=== PATIENT | female | born 1935 | race African-American/Black ===

== ENCOUNTER 2017-11-25 21:18 | Emergency (ER) | payer MEDICARE, BC | END 2017-11-25 21:30 | disposition left against medical advice (07) | LOC: ER 21:27 | DX: R53.1 Weakness (principal); Z53.21 Procedure and treatment not carried out due to patient leaving prior to being seen by health care provider ==

== ENCOUNTER 2020-07-04 23:21 | Emergency (ER) | payer MEDICARE, BC ==
[~2020-07-04] VITALS: Ht 167.6 cm; Wt 59.0 kg
[2020-07-04 23:30] VITALS: BP 112/76
[2020-07-05 01:03] LABS: CHLORIDE 107 mEq/L (98-107)
[2020-07-05 01:11] LABS: BASOPHILS % 0.6 % (0.0-2.0); EOSINOPHILS % 0.8 % (0.0-5.0); HEMATOCRIT. 31.2 % (36.0-48.0); HEMOGLOBIN. 10.3 g/dL (12.0-16.0); LYMPHOCYTES % 15.9 % (20.0-50.0); MEAN CORPUSCULAR HEMOGLOBIN 29.1 pg (28.0-32.0); MEAN CORPUSCULAR VOLUME 87.9 fL (81.0-99.0); MEAN PLATELET VOLUME 7.8 fl (7.4-10.4); MONOCYTES % 5.6 % (2.0-8.0); NEUTROPHILS % 77.1 % (40.0-76.0); PLATELET 205 x1000/uL (130-400); RED BLOOD CELL COUNT 3.55 mill/uL (4.2-5.4)
== END 2020-07-05 01:20 | disposition left against medical advice (07) ==
LOC: ER 23:21 → EDBD 23:21 → ER 07-05 01:20 → CANBEDREQ 07-05 04:03
DX: R07.9 Chest pain, unspecified (principal); I48.91 Unspecified atrial fibrillation; I69.351 Hemiplegia and hemiparesis following cerebral infarction affecting right dominant side
CPT/HCPCS: 36415; 71045; 80053; 83880; 84484; 85025; 93005; 99285